=== PATIENT | female | born 1950 | race Hispanic/Latino ===

== ENCOUNTER 2018-08-04 02:04 | Emergency (ER) | payer OTHER ==
[2018-08-04] MEDS ORDERED: ONDANSETRON 4 MG/2 ML VIAL ONE ×2 (02:37→03:29)
[2018-08-04] MEDS ORDERED: FENTANYL CITR 100 MCG/2 ML ONE (02:37)
[2018-08-04] MEDS ORDERED: NA CHLORIDE 0.9% 1,000 ML ONE (02:37)
[2018-08-04] MEDS ORDERED: CEFTRIAXONE/SWI 1gm 1 GM/10 ML SYR ONE (02:37)
[2018-08-04 02:53] LABS: Absolute Lymphocytes (CBC) 2.9 K/uL (0.7-4.9); Absolute Monocytes 0.6 K/uL (0.1-1.3); Absolute Neutrophil 5.7 K/uL (1.8-8.0); Basophils % 0.2 % (0-1.3); Eosinophils % 1.6 % (0-4.4); Hematocrit 37.6 % (36.0-45.0); Lymphocytes % 30.9 % (15.3-44.8); MCH 29.7 pg (27.0-35.0); MCV 88.8 fL (80-100); MPV 9.1 fL (7.6-11.3); Monocytes % 6.4 % (3.3-12.3); RBC Red Blood Cell Count 4.23 M/uL (3.86-4.86)
[2018-08-04 02:53] LABS: Urine Appearance CLEAR; Urine Bilirubin NEGATIVE (NEG); Urine Blood NEGATIVE (NEG); Urine Color YELLOW; Urine Glucose NEGATIVE (NEG); Urine Protein TRACE (NEG); Urine Urobilinogen 0.2 mg/dL (0.2-1.0); Urine pH 5.5 (5.0-7.0)
[2018-08-04 03:02] LABS: ALT/SGPT 35 U/L (12-78); AST/SGOT 23 U/L (15-37); Albumin 3.9 g/dL (3.4-5.0); Alkaline Phosphatase 66 U/L (45-117); BUN Blood Urea Nitrogen 13 mg/dL (7-18); Bicarbonate 29 mmol/L (21-32); Bilirubin Direct 0.1 mg/dL (0-0.2); Bilirubin Total 0.5 mg/dL (0.2-1.0); Glucose Level 182 mg/dL (74-106); Lipase 107 U/L (73-393); Potassium 3.7 mmol/L (3.5-5.1); Protein, Total 7.4 g/dL (6.4-8.2); Sodium Level 142 mmol/L (136-145)
[2018-08-04 03:02] LABS: Urine Microscopic Reflex ORDER UMIC
[2018-08-04 03:24] LABS: Urine Bacteria <20 /HPF (<20); Urine Culture Reflex Order NOT NEEDED; Urine Mucus MOD /HPF (NONE SEEN); Urine RBC <5 /HPF (NONE SEEN)
--- NOTE | 2018-08-04 04:04 | ER ---
Nurse's Notes [facility] Name: Aneesh Stock Age: 67 yrs Sex: Female : 1950 Arrival Date: 08/04/2018 Time: 02:08 Bed 20 Private MD: Juan Liriano V Diagnosis: Hydronephrosis with renal and ureteral calculous obstruction Presentation: 08/04 02:17 Presenting complaint: Patient states: right flank pain right lower abd pain. Transition ak1 of care: patient was not received from another setting of care. Onset of symptoms is unknown. Risk Assessment: Do you want to hurt yourself or someone else? Patient reports no desire to harm self or others. Initial Sepsis Screen: Does the patient meet any 2 criteria? No. Patient's initial sepsis screen is negative. Does the patient have a suspected source of infection? No. Patient's initial sepsis screen is negative. Care prior to arrival: None. 02:17 Method Of Arrival: Ambulatory ak1 02:17 Acuity: NICHOLAS 3 ak1 Triage Assessment: 02:19 General: Appears in no apparent distress. Behavior is calm, cooperative. Pain: ak1 Complains of pain in right low back and right mid back. EENT: No signs and/or symptoms were reported regarding the EENT system. Neuro: No deficits noted. Cardiovascular: No deficits noted. Respiratory: No deficits noted. GI: No signs and/or symptoms were reported involving the gastrointestinal system. : Reports pain in right flank(s). Derm: No signs and/or symptoms reported regarding the dermatologic system. Musculoskeletal: Range of motion: intact in all extremities. Historical: - Allergies: 02:19 Codeine; ak1 02:19 Lamisil; ak1 02:19 Lidocaine; ak1 - Home Meds: 02:19 Glimepiride Oral [Active]; Januvia oral oral [Active]; ak1 - PMHx: 02:19 Diabetes - NIDDM; Hyperlipidemia; Hypertension; ak1 - PSHx: 02:19 ; Hysterectomy; Knee surgery; breast surgery; left wrist sx; ak1 - Immunization history:: Adult Immunizations unknown. - Social history:: Smoking status: Patient/guardian denies using tobacco. - Family history:: not pertinent. - Ebola Screening: : No symptoms or risks identified at this time. Screenin:19 Abuse screen: Denies threats or abuse. Denies injuries from another. Nutritional ak1 screening: No deficits noted. Tuberculosis screening: No symptoms or risk factors identified. Fall Risk None identified. Assessment: 02:41 Reassessment: Patient appears in no apparent distress at this time. No changes from ak1 previously documented assessment. Patient is alert, oriented x 3, equal unlabored respirations, skin warm/dry/pink. see triage assessment. Neuro: Level of Consciousness is awake, alert, obeys commands, Oriented to person, place, time, situation, Minister Assistant are equal bilaterally Moves all extremities. Gait is steady, Speech is normal, Facial symmetry appears normal. 03:18 Reassessment: Patient appears in no apparent distress at this time. No changes from ak1 previously documented assessment. Patient is alert, oriented x 3, equal unlabored respirations, skin warm/dry/pink. pt ambulated to restroom with steady gait. family at bedside, will continue to monitor. 04:19 Reassessment: pt with vomiting while ambulating to restroom, provider notified and new ak1 orders given. Vital Signs: 02:19 BP 149 / 55; Pulse 56; Resp 18; Temp 98.0(O); Pulse Ox 100% on R/A; Weight 70.31 kg ak1 (R); Height 5 ft. 0 in. (152.40 cm) (R); Pain 9/10; 03:36 BP 130 / 57; Pulse 57; Resp 18; Pulse Ox 97% on 2 lpm NC; ak1 02:19 Body Mass Index 30.27 (70.31 kg, 152.40 cm) ak1 ED Course: 02:08 Patient arrived in ED. es 02:08 Juan Liriano MD is Private Physician. es 02:13 Daren Chen MD is Attending Physician. michael 02:17 Ana María Freed, SIMON is Primary Nurse. ak1 02:17 Triage completed. ak1 02:19 Arm band placed on Patient placed in an exam room, on a stretcher, on pulse oximetry, ak1 Patient notified of wait time. 02:20 Patient has correct armband on for positive identification. Bed in low position. Call ak1 light in reach. Side rails up X 1. Adult w/ patient. Pulse ox on. NIBP on. 02:41 Inserted saline lock: 20 gauge in left antecubital area, using aseptic technique. ak1 ,using aseptic technique. placed by Roscoe Myrick RN Blood collected. 02:58 CT completed. Patient tolerated procedure well. Patient moved to CT via stretcher. eh Patient moved back from CT. 03:05 CT Stone Protocol In Process Unspecified. EDMS 04:02 Juan Liriano MD is Referral Physician. michael 04:02 Feliciano Escudero MD is Referral Physician. michael 04:43 No provider procedures requiring assistance completed. IV discontinued, intact, ak1 bleeding controlled, No redness/swelling at site. Pressure dressing applied. Administered Medications: 02:40 Drug: NS 0.9% 500 ml Route: IV; Rate: bolus; Site: left antecubital; ak1 03:28 Follow up: IV Status: Completed infusion ak1 02:40 Drug: fentaNYL (PF) 25 mcg Route: IVP; Site: left antecubital; ak1 03:18 Follow up: Response: No adverse reaction ak1 02:40 Drug: Zofran 4 mg Route: IVP; Site: left antecubital; ak1 03:18 Follow up: Response: No adverse reaction ak1 02:40 Drug: Rocephin - (cefTRIAXone) 1 grams Route: IVPB; Infused Over: 30 mins; Site: left ak1 antecubital; 04:13 Follow up: IV Status: Completed infusion ak1 03:27 Drug: NS 0.9% 1000 ml Route: IV; Rate: 125 ml/hr; Site: left antecubital; ak1 04:17 Follow up: IV Status: Completed infusion ak1 03:27 Drug: Zofran 4 mg Route: IVP; Site: left antecubital; ak1 03:32 Follow up: Response: No adverse reaction ak1 03:29 Drug: fentaNYL (PF) 25 mcg Route: IVP; Site: left antecubital; ak1 03:29 Follow up: Response: No adverse reaction ak1 04:12 Drug: TORadol 30 mg Route: IVP; Site: left antecubital; ak1 04:17 Follow up: Response: No adverse reaction ak1 04:12 Drug: NS 0.9% 500 ml Route: IV; Rate: bolus; Site: left antecubital; ak1 04:43 Follow up: IV Status: Completed infusion ak1 04:13 Drug: Phenergan 12.5 mg Route: IVP; Site: left antecubital; ak1 04:16 Follow up: Response: No adverse reaction ak1 04:32 Drug: Flomax 0.4 mg Route: PO; ak1 04:43 Follow up: Response: No adverse reaction ak1 Outcome: 04:02 Discharge ordered by . michael 04:44 Discharged to home via wheelchair, with family. ak1 04:44 Condition: good 04:44 Discharge instructions given to patient, family, Instructed on discharge instructions, follow up and referral plans. no drinking with medication, no driving heavy equipment, medication usage, Demonstrated understanding of instructions, follow-up care, medications, Prescriptions given X 4. 04:44 Patient left the ED. ak1 Addendum: 08/05/2018 11:31 Addendum: Radiology Result: Dr. Reese reviewed CT, advises to have pt follow up with i w PCP to evaluate the need for repeat CT with contrast, pt was notified by Yuan Gaona NP. 08/07/2018 07:48 Addendum: Culture Results: Positive urine culture. No further action required. Bacteria h b sensitive to prescribed antibiotic. Signatures: Dispatcher [employer] Daren Prado MD MD cha Salyer, Tyler Gannon Irene, Ana María Hernandez RN, RN RN ak1 Maria Elena Zamora RN RN
--- NOTE | 2018-08-04 04:04 | EDPHYS ---
Physician Documentation [facility] Name: Aneesh Stock Age: 67 yrs Sex: Female : 1950 Arrival Date: 08/04/2018 Time: 02:08 Bed 20 Private MD: Juan Liriano V ED Physician Daren Chen HPI: 08/04 02:16 This 67 yrs old Female presents to ER via Unassigned with complaints of Back michael Pain, Flank Pain. 02:16 The patient presents with pain that is acute, with no known mechanism of injury. The michael symptoms are located in the right mid back and right low back. Onset: The symptoms/episode began/occurred just prior to arrival, this morning. Location: right mid back and right low back. Associated signs and symptoms: The patient has no apparent associated signs or symptoms. The problem was sustained from unknown cause. Severity of symptoms: At their worst the symptoms were moderate. The patient has not experienced similar symptoms in the past. Historical: - Allergies: 02:19 Codeine; ak1 02:19 Lamisil; ak1 02:19 Lidocaine; ak1 - Home Meds: 02:19 Glimepiride Oral [Active]; Januvia oral oral [Active]; ak1 - PMHx: 02:19 Diabetes - NIDDM; Hyperlipidemia; Hypertension; ak1 - PSHx: 02:19 ; Hysterectomy; Knee surgery; breast surgery; left wrist sx; ak1 - Immunization history:: Adult Immunizations unknown. - Social history:: Smoking status: Patient/guardian denies using tobacco. - Family history:: not pertinent. - Ebola Screening: : No symptoms or risks identified at this time. ROS: 02:16 Constitutional: Negative for fever, chills, and weight loss, Eyes: Negative for injury, michael pain, redness, and discharge, ENT: Negative for injury, pain, and discharge, Neck: Negative for injury, pain, and swelling, Cardiovascular: Negative for chest pain, palpitations, and edema, Respiratory: Negative for shortness of breath, cough, wheezing, and pleuritic chest pain, Abdomen/GI: Negative for abdominal pain, nausea, vomiting, diarrhea, and constipation, : Negative for injury, bleeding, discharge, and swelling, MS/Extremity: Negative for injury and deformity, Skin: Negative for injury, rash, and discoloration, Neuro: Negative for headache, weakness, numbness, tingling, and seizure, Psych: Negative for depression, anxiety, suicide ideation, homicidal ideation, and hallucinations, Allergy/Immunology: Negative for hives, rash, and allergies, Endocrine: Negative for neck swelling, polydipsia, polyuria, polyphagia, and marked weight changes, Hematologic/Lymphatic: Negative for swollen nodes, abnormal bleeding, and unusual bruising. 02:16 Back: Positive for decreased range of motion, pain at rest, flank pain, on the right. Exam: 02:16 Constitutional: This is a well developed, well nourished patient who is awake, alert, michael and in no acute distress. Head/Face: Normocephalic, atraumatic. Eyes: Pupils equal round and reactive to light, extra-ocular motions intact. Lids and lashes normal. Conjunctiva and sclera are non-icteric and not injected. Cornea within normal limits. Periorbital areas with no swelling, redness, or edema. ENT: Nares patent. No nasal discharge, no septal abnormalities noted. Tympanic membranes are normal and external auditory canals are clear. Oropharynx with no redness, swelling, or masses, exudates, or evidence of obstruction, uvula midline. Mucous membranes moist. Neck: Trachea midline, no thyromegaly or masses palpated, and no cervical lymphadenopathy. Supple, full range of motion without nuchal rigidity, or vertebral point tenderness. No Meningismus. Chest/axilla: Normal chest wall appearance and motion. Nontender with no deformity. No lesions are appreciated. Cardiovascular: Regular rate and rhythm with a normal S1 and S2. No gallops, murmurs, or rubs. Normal PMI, no JVD. No pulse deficits. Respiratory: Lungs have equal breath sounds bilaterally, clear to auscultation and percussion. No rales, rhonchi or wheezes noted. No increased work of breathing, no retractions or nasal flaring. Abdomen/GI: Soft, non-tender, with normal bowel sounds. No distension or tympany. No guarding or rebound. No evidence of tenderness throughout. Female : Normal external genitalia. Skin: Warm, dry with normal turgor. Normal color with no rashes, no lesions, and no evidence of cellulitis. MS/ Extremity: Pulses equal, no cyanosis. Neurovascular intact. Full, normal range of motion. Neuro: Awake and alert, GCS 15, oriented to person, place, time, and situation. Cranial nerves II-XII grossly intact. Motor strength 5/5 in all extremities. Sensory grossly intact. Cerebellar exam normal. Normal gait. Psych: Awake, alert, with orientation to person, place and time. Behavior, mood, and affect are within normal limits. 02:16 Back: pain, that is mild, that is moderate, ROM is normal, normal spinal alignment noted, CVA tenderness, is absent, vertebral tenderness, is not appreciated, muscle spasm, is not present, no rash. Vital Signs: 02:19 BP 149 / 55; Pulse 56; Resp 18; Temp 98.0(O); Pulse Ox 100% on R/A; Weight 70.31 kg ak1 (R); Height 5 ft. 0 in. (152.40 cm) (R); Pain 9/10; 03:36 BP 130 / 57; Pulse 57; Resp 18; Pulse Ox 97% on 2 lpm NC; ak1 02:19 Body Mass Index 30.27 (70.31 kg, 152.40 cm) ak1 MDM: 02:48 Patient medically screened. [facility] 04:03 Data reviewed: vital signs, nurses notes, lab test result(s), radiologic studies, CT michael scan. 08/04 02:15 Order name: Basic Metabolic Panel; Complete Time: 03:21 [facility] 08/04 02:15 Order name: CBC with Diff; Complete Time: 03:21 [facility] 08/04 02:15 Order name: Creatinine for Radiology; Complete Time: 03:21 [facility] 08/04 02:15 Order name: Hepatic Function; Complete Time: 03:21 [facility] 08/04 02:15 Order name: Lipase; Complete Time: 03:21 [facility] 08/04 02:15 Order name: Urine Culture [facility] 08/04 02:16 Order name: CT Stone Protocol [facility] 08/04 02:41 Order name: Urinalysis; Complete Time: 04:01 [facility] 08/04 03:03 Order name: Urine Microscopic Only; Complete Time: 04:01 [facility] 08/04 02:15 Order name: IV Saline Lock; Complete Time: 02:31 [facility] 08/04 02:15 Order name: Labs collected and sent; Complete Time: 02:31 [facility] 08/04 02:15 Order name: Urine Dipstick-Ancillary (obtain specimen); Complete Time: 02:40 [facility] Administered Medications: 02:40 Drug: NS 0.9% 500 ml Route: IV; Rate: bolus; Site: left antecubital; ak1 03:28 Follow up: IV Status: Completed infusion ak1 02:40 Drug: fentaNYL (PF) 25 mcg Route: IVP; Site: left antecubital; ak1 03:18 Follow up: Response: No adverse reaction ak1 02:40 Drug: Zofran 4 mg Route: IVP; Site: left antecubital; ak1 03:18 Follow up: Response: No adverse reaction ak1 02:40 Drug: Rocephin - (cefTRIAXone) 1 grams Route: IVPB; Infused Over: 30 mins; Site: left ak1 antecubital; 04:13 Follow up: IV Status: Completed infusion ak1 03:27 Drug: NS 0.9% 1000 ml Route: IV; Rate: 125 ml/hr; Site: left antecubital; ak1 04:17 Follow up: IV Status: Completed infusion ak1 03:27 Drug: Zofran 4 mg Route: IVP; Site: left antecubital; ak1 03:32 Follow up: Response: No adverse reaction ak1 03:29 Drug: fentaNYL (PF) 25 mcg Route: IVP; Site: left antecubital; ak1 03:29 Follow up: Response: No adverse reaction ak1 04:12 Drug: TORadol 30 mg Route: IVP; Site: left antecubital; ak1 04:17 Follow up: Response: No adverse reaction ak1 04:12 Drug: NS 0.9% 500 ml Route: IV; Rate: bolus; Site: left antecubital; ak1 04:43 Follow up: IV Status: Completed infusion ak1 04:13 Drug: Phenergan 12.5 mg Route: IVP; Site: left antecubital; ak1 04:16 Follow up: Response: No adverse reaction ak1 04:32 Drug: Flomax 0.4 mg Route: PO; ak1 04:43 Follow up: Response: No adverse reaction ak1 Disposition: 08/04/18 04:02 Discharged to Home. Impression: Hydronephrosis with renal and ureteral calculous obstruction. - Condition is Stable. - Discharge Instructions: Kidney Stones, Kidney Stones, [id number], Hydronephrosis, Dietary Guidelines to Help Prevent Kidney Stones. - Prescriptions for Augmentin 500- 125 mg Oral Tablet - take 1 tablet by ORAL route every 8 hours for 10 days; 21 tablet. Zofran 4 mg Oral Tablet - take 1 tablet by ORAL route every 12 hours As needed; 20 tablet. Flomax 0.4 mg Oral Capsule, Sust. Release 24 hr - take 1 capsule by ORAL route once daily 1/2 hour following the same meal each day; 30 capsule. Tramadol 50 mg Oral Tablet - take 1 tablet by ORAL route every 8 hours as needed; 26 tablet. - Medication Reconciliation Form, Thank You Letter, Antibiotic Education, Prescription Opioid Use form. - Follow up: Juan Liriano; When: 2 - 3 days; Reason: Recheck today's complaints, Continuance of care, Re-evaluation by your physician. Follow up: Feliciano Escudero; When: 2 - 3 days; Reason: Recheck today's complaints, Continuance of care, Re-evaluation by your physician. - Problem is new. - Symptoms have improved. Signatures: Dispatcher [employer] Daren Prado MD MD cha Krenek, Amber, RN RN ak1 Corrections: (The following items were deleted from the chart) 04:44 04:02 08/04/2018 04:02 Discharged to Home. Impression: Hydronephrosis with renal and ak1 ureteral calculous obstruction. Condition is Stable. Discharge Instructions: Kidney Stones, Kidney Stones, [id number], Hydronephrosis, Dietary Guidelines to Help Prevent Kidney Stones. Prescriptions for Augmentin 500-125 mg Oral Tablet - take 1 tablet by ORAL route every 8 hours for 10 days; 21 tablet, Zofran 4 mg Oral Tablet - take 1 tablet by ORAL route every 12 hours As needed; 20 tablet, Flomax 0.4 mg Oral Capsule, Sust. Release 24 hr - take 1 capsule by ORAL route once daily 1/2 hour following the same meal each day; 30 capsule, Tramadol 50 mg Oral Tablet - take 1 tablet by ORAL route every 8 hours as needed; 26 tablet. and Forms are Medication Reconciliation Form, Thank You Letter, Antibiotic Education, Prescription Opioid Use. Follow up: Juan Liriano; When: 2 - 3 days; Reason: Recheck today's complaints, Continuance of care, Re-evaluation by your physician. Follow up: Feliciano Escudero; When: 2 - 3 days; Reason: Recheck today's complaints, Continuance of care, Re-evaluation by your physician. Problem is new. Symptoms have improved. michael
[2018-08-04] MEDS ORDERED: TAMSULOSIN 0.4 MG SR CAP ONE (04:13)
[2018-08-04] MEDS ORDERED: KETOROLAC 30 MG/ML INJ ONE (04:13)
[2018-08-04] MEDS ORDERED: PROMETHAZINE 25 MG/ML VIAL ONE (04:13)
--- NOTE | 2018-08-04 08:15 | RAD REPORT ---
EXAM DESCRIPTION: CT - Stone Protocol - 08/04/2018 4:24 am CLINICAL HISTORY: Abdominal pain, flank pain, prior hysterectomy A preliminary report was provided at the time of the study and reviewed prior to final report. COMPARISON: None. TECHNIQUE: Axial 5 mm thick images were obtained without oral or IV contrast. The [id number] span s the entirety of the system including uppermost abdomen and lung bases. All CT scans are performed using dose optimization technique as appropriate and may include automated exposure control or mA/KV adjustment according to patient size. FINDINGS: Moderate right-sided hydronephrosis is present secondary to a 4 mm right UVJ calculus. No left-sided hydronephrosis. Punctate nonobstructing caliceal calculi are present. Multiple bilateral v ariably sized round low-density masses are seen in the renal parenchyma. These are probably cysts but are not fully characterized. An exophytic 3 centimeter mass posterior mid left kidney has a somewhat flattened or oblong shape probably due to extrinsic compression. None of the masses are fully charac terized. Urinary bladder is contracted. No calculus within the lumen. Uterus is absent. Ovaries are a bsent or atrophic. Patient has numerous pelvic floor phleboliths. Calcifications are near the vaginal cuff as well. Liver is prominent in size. There are numerous variably sized low-density masses in the liver predomi nantly left lobe. These range from a few mm up to 2.6 cm in size. The cysts in the liver parenchyma a re not fully characterized on noncontrast imaging. Spleen and pancreas show no suspicious findings. No gallbladder or biliary tree abnormality identifie d. Gallstones can be occult on CT imaging. No adrenal abnormality. No suspicious bowel findings. No mass or bulky lymphadenopathy. A small 18 millimeter umbilical hernia is present. No bowel involve ment. No free air, free fluid or inflammatory stranding. No omental thickening. No significant bony abnormality. Age appropriate degenerative changes are present. Degenerative aburto es are most prominent in the lower lumbar facet joints. IMPRESSION: Moderate right-sided hydronephrosis secondary to a 4 mm UVJ calculus. Bilateral nonobstructing caliceal calculi present. Isodense masses and pyelonephritis are not excluded on stone protocol technique. Multiple bilateral renal and hepatic round low-density masses. These may all be simple cysts but are not assessed fully on this examination. There are characteristics in a few of these liver and renal l esions warranting follow-up with contrast enhanced CT imaging.
== END 2018-08-04 04:44 | disposition home or self-care (01) ==
LOC: ER 02:04
DX: N13.2 Hydronephrosis with renal and ureteral calculous obstruction (principal); I10 Essential (primary) hypertension; E78.5 Hyperlipidemia, unspecified; E11.9 Type 2 diabetes mellitus without complications; Z79.4 Long term (current) use of insulin; Z88.4 Allergy status to anesthetic agent; Z88.5 Allergy status to narcotic agent; Z88.8 Allergy status to other drugs, medicaments and biological substances
CPT/HCPCS: 36415; 74176; 76377; 80048; 80076; 83690; 85025; 87077 ×2; 87086; 87088; 87186 ×2; 96365; 96366; 96375; 99284; J0696; J2405 ×2; J2550; J3010; J7030; 81003; 81015

== ENCOUNTER 2019-04-29 09:32 | Emergency (ER) | payer OTHER ==
--- OUTSIDE RECORDS SUMMARY | 2019-04-29 09:35 | XMS REPORT | Clinical Summary ---
:1950 Author Organization [facility] Address [address] [place] [address] Care Team Providers Name Role Phone Juan Liriano MD Primary Care Provider Allergies Active Allergy Reactions Severity Noted Date Comments Adhesive Tape-Silicones 10/25/2017 Skin sensitivity Codeine 10/25/2017 Passes out Terbinafine Hcl Rash Low 10/25/2017 Lidocaine Anaphylaxis High 10/25/2017 Medications Medication Sig Dispensed Refills Start Date End Date Status SIMVASTATIN (ZOCOR Take 40 mg by 0 Active ORAL) mouth every evening. aspirin (ECOTRIN) 81 MG Take 81 mg by 0 Active enteric coated tablet mouth daily. GLIMEPIRIDE ORAL Take 4 mg by mouth 0 Active daily. omeprazole (PriLOSEC) Take 20 mg by 0 Active 20 MG capsule mouth daily. sitaGLIPtin (JANUVIA) Take 100 mg by 0 Active 50 MG tablet mouth daily. ACETAMINOPHEN (TYLENOL Take by mouth. 0 Active ORAL) fluticasone-salmeterol Inhale 1 puff 2 0 Active (ADVAIR) 100-50 (two) times a day. mcg/dose DISKUS traMADol (ULTRAM) 50 mg Take 50 mg by 0 Active tablet mouth every 6 (six) hours as needed for moderate pain. NON FORMULARY daily. 0 Active Mitochondrial Booster hydroxychloroquine Take by mouth 2 0 Active (PLAQUENIL) 200 mg (two) times a day. tablet CALCIUM ORAL Take by mouth 0 Active daily. NON FORMULARY Allergy shot every 0 Active week losartan (COZAAR) 50 MG Take 50 mg by 0 Active tablet mouth daily. Active Problems Problem Noted Date Closed fracture of left distal radius and ulna 10/28/2017 Closed fracture of left distal radius 10/25/2017 Encounters Date Type Specialty Care Team Description 03/30/2019 Hospital Encounter Radiology Angel, An Kae, Acquired cyst of MD kidney 03/16/2019 Transcribe Orders Access Angel, An Kae, Acquired cyst of MD kidney (Primary Dx) 11/02/2018 Office Visit Orthopedic Surgery Linette Viera Closed fracture of MD Edel distal end of left radius with routine healing, unspecified fracture morphology, subsequent encounter (Primary Dx) 08/21/2018 Hospital Encounter Radiology Angel, An Kae, Acquired cyst of MD kidney 08/16/2018 Transcribe Orders Access Angel, An Kea, Acquired cyst of MD kidney (Primary Dx) after 04/28/2018 Family History Medical History Relation Name Comments Diabetes Maternal Grandmother Lachelle Herbert Cancer Mother Magdalena Diego Relation Name Status Comments Maternal Grandmother Lachelle Herbert Mother Magdalena Diego Social History Tobacco Use Types Packs/Day Years Used Date Never Smoker Smokeless Tobacco: Never Used Alcohol Use Drinks/Week oz/Week Comments No Sex Assigned at Date Recorded Not on file Job Start Date Occupation Industry Not on file Not on file Not on file Travel History Travel Start Travel End No recent travel history available. Last Filed Vital Signs Not on file Plan of Treatment Health Maintenance Due Date Last Done Comments BREAST CANCER SCREENING 2000 COLONOSCOPY SCREENING 2000 SHINGLES VACCINES (#1) 2000 65+ PNEUMOCOCCAL VACCINE (1 of 2 - PCV13) 12/31/2015 INFLUENZA VACCINE 05/24/2019 08/31/2018 Implants Implanted Type Area Ostomy Care Nurse Device Shelf Model / Identifier Expiration Serial / Date Lot 2.4 X 16mm Kathy Screw, Ti - [id number] [id number] IMPLANT Left: [employer] AR [id number] 16 / Implanted: Qty: 1 on 10/28/2017 by Linette Viera MD DEVICES Wrist [employer]THOPED[employer] / 2.4 X 18mm Kathy Screw, Ti - [id number] [id number] IMPLANT Left: [employer] AR [id number] 18 / Implanted: Qty: 1 on 10/28/2017 by Linette Viera MD [employer] Wrist [employer]TH[employer] / 2.4 X 18mm Kathy Screw, Ti - [id number] [id number] IMPLANT Left: [employer] AR [id number] 18 / Implanted: Qty: 1 on 10/28/2017 by Linette Viera MD [employer] Wrist [employer] / 2.4 X 18mm Kathy Screw, Ti - [id number] [id number] IMPLANT Left: [employer] AR [id number] 18 / Implanted: Qty: 1 on 10/28/2017 by Linette Viera MD [employer] Wrist [employer] / Volar Distal Rad Plt Ti Narrow Lt 3h - [id number] [id number] IMPLANT Left: [employer] AR [id number] 03 / Implanted: Qty: 1 on 10/28/2017 by Linette Viera MD [employer]rist [employer] / Lo-Pro Scrw,Ti,3.5mmx 12mm - [id number] [id number] IMPLANT Left: [employer] AR 8935 12 / Implanted: Qty: 1 on 10/28/2017 by Linette Viera MD [employer] Wrist [employer] / Lo-Pro Lock Scrw,Ti,3.5mmx 12mm - [id number] [id number] IMPLANT Left: [employer] AR [id number] 12 / Implanted: Qty: 1 on 10/28/2017 by Linette Viera MD [employer] Wrist [employer] / Lo-Pro Lock Scrw,Ti,3.5mmx 12mm - [id number] IPM IMPLANT Left: [employer] AR [id number] 12 / Implanted: Qty: 1 on 10/28/2017 by Linette Viera MD [employer] / Procedures Procedure Name Priority Date/Time Associated Diagnosis Comments CT ABDOMEN W WO Routine 03/30/2019 9:56 AM Acquired cyst of Results for this CONTRAST CDT kidney procedure are in the results section. ESTIMATED GFR Routine 03/30/2019 9:16 AM Results for this CDT procedure are in the results section. CREATININE, WHOLE Routine 03/30/2019 9:16 AM Results for this BLOOD CDT procedure are in the results section. XR WRIST 3+ VW LEFT Routine 11/02/2018 12:59 PM Closed fracture of Results for this [employer] distal end of left procedure are in radius with routine the results healing, unspecified section. fracture morphology, subsequent encounter US RENAL Routine 08/21/2018 9:37 AM Acquired cyst of Results for this CDT kidney procedure are in the results section. after 04/28/[address] Abdomen W Wo Contrast (03/30/2019 9:56 AM CDT) Specimen Narrative Performed At EXAMINATION:CT ABDOMEN W WO CONTRAST HM [facility] CLINICAL HISTORY:N28.1 Cyst of kidneyacquired, n28.1 TECHNIQUE:CT of the abdomen was obtained following the uneventful administration of intravenous contrast. Noncontrast, medullary, and delayed phase images were obtained along with coronal and sagittal reformats. DOSE REDUCTION: CT imaging was performed with iterative reconstruction technique and/or automated exposure control to reduce radiation dose. COMPARISON:None. FINDINGS: 1.Multiple punctate, nonobstructing renal stones are seen within both collecting systems. There is a single calcification seen within a midpole calyx of the right kidney measuring up to 0.2 cm. Multiple calcifications are seen within the superior pole calyces of the left kidney measuring up to 0.2 cm. There is no evidence of hydronephrosis. No perinephric stranding. 2.Multiple simple cysts are seen within both kidneys. No internal septations or mural nodules are noted. These all appear Bosniak 1). The largest on the right measures 3.0 cm. The largest on the left measures 3.8 cm. 3.Both kidneys demonstrate excretion of contrast on delayed images. No filling defects are seen within the collecting systems. Both kidneys measure up to 8.4 cm in greatest craniocaudal dimension. 4.A single right and single left renal vein is noted. A single right and single left renal artery is also seen. No ostial stenosis. 5.The lung bases are clear. Bibasilar atelectasis. The cardiac size is normal. No pericardial effusion. 6.Multiple cysts are seen scattered throughout the liver which all appear simple. There is a peripheral/nodular enhancement component to a cyst within the inferior right lobe (image 51, series 4), measuring 1.1 cm, and may represent a hemangioma. No intrahepatic biliary duct dilatation. The main portal vein, superior mesenteric vein, and splenic veins are patent. 7.The gallbladder is contracted. No gallstones are seen. Common bile duct is unremarkable. 8.The pancreas, spleen, and adrenals are unremarkable. 9.The visualized loops of large and small bowel are unremarkable. 10.No retroperitoneal lymphadenopathy. 11.The abdominal aorta is normal in course and caliber with a minimal amount of calcified atherosclerotic disease. 12.The bones of the abdomen are unremarkable. IMPRESSION: 1.Multiple simple cysts are seen within both kidneys and the liver. No solid masses. 2.Bilateral nonobstructing nephrolithiasis. [id number] Procedure Note Hm Interface, Radiology Results Incoming - 03/30/2019 10:51 AM CDT EXAMINATION: CT ABDOMEN W WO CONTRAST CLINICAL HISTORY: N28.1 Cyst of kidney acquired, n28.1 TECHNIQUE: CT of the abdomen was obtained following the uneventful administration of intravenous contrast. Noncontrast, medullary, and delayed phase images were obtained along with coronal and sagittal reformats. DOSE REDUCTION: CT imaging was performed with iterative reconstruction technique and/or automated exposure control to reduce radiation dose. COMPARISON: None. FINDINGS: 1. Multiple punctate, nonobstructing renal stones are seen within both collecting systems. There is a single calcification seen within a midpole calyx of the right kidney measuring up to 0.2 cm. Multiple calcifications are seen within the superior pole calyces of the left kidney measuring up to 0.2 cm. There is no evidence of hydronephrosis. No perinephric stranding. 2. Multiple simple cysts are seen within both kidneys. No internal septations or mural nodules are noted. These all appear Bosniak 1). The largest on the right measures 3.0 cm. The largest on the left measures 3.8 cm. 3. Both kidneys demonstrate excretion of contrast on delayed images. No filling defects are seen within the collecting systems. Both kidneys measure up to 8.4 cm in greatest craniocaudal dimension. 4. A single right and single left renal vein is noted. A single right and single left renal artery is also seen. No ostial stenosis. 5. The lung bases are clear. Bibasilar atelectasis. The cardiac size is normal. No pericardial effusion. 6. Multiple cysts are seen scattered throughout the liver which all appear simple. There is a peripheral/nodular enhancement component to a cyst within the inferior right lobe (image 51, series 4), measuring 1.1 cm, and may represent a hemangioma. No intrahepatic biliary duct dilatation. The main portal vein, superior mesenteric vein, and splenic veins are patent. 7. The gallbladder is contracted. No gallstones are seen. Common bile duct is unremarkable. 8. The pancreas, spleen, and adrenals are unremarkable. 9. The visualized loops of large and small bowel are unremarkable. 10. No retroperitoneal lymphadenopathy. 11. The abdominal aorta is normal in course and caliber with a minimal amount of calcified atherosclerotic disease. 12. The bones of the abdomen are unremarkable. IMPRESSION: 1. Multiple simple cysts are seen within both kidneys and the liver. No solid masses. 2. Bilateral nonobstructing nephrolithiasis. [facility]-[id number] Performing Organization Address City/[facility]/Zipcode Phone Number [facility] [address] [place] [address] Estimated GFR (03/30/2019 9:16 AM CDT) Estimated GFR >=90 mL/min/1.73 [facility] Comment: m2 [place] CatergoryUnitsInterpretation [facility] G1 >=90 Normal or high G2 60-89Mildly decreased [id number] to moderately decreased [id number] to severely decreased G4 15-29Severely decreased G5 <15Kidney failure The eGFR was calculated using the Chronic Kidney Disease Epidemiology Collaboration (CKD-EPI) equation. Interpretation is based on recommendations of the National Kidney Foundation-Kidney Disease Outcomes Quality Initiative (NKF-KDOQI) published in 2014. Specimen Plasma specimen Performing Organization Address [facility] Phone Number [facility] DEPARTMENT OF PATHOLOGY [id number] [place] [address] Creatinine, whole blood (03/30/2019 9:16 AM CDT) Creatinine, whole 0.47 (L) 0.50 - 0.90 [facility] blood mg/dL [facility] Specimen Plasma specimen Performing Organization Address [facility] Phone Number [facility] DEPARTMENT OF PATHOLOGY [id number] [place] [address] AND [facility] [id number] [place] [address] XR Wrist 3+ Vw Left (11/02/2018 12:59 PM GUN [employer]OCK [employer]ER) Specimen Narrative Performed At 3 view of right wrist shows well healed distal radius fracture, unchanged [facility] alignment of hardware. Performing Organization Address City/[facility]/Zipcode Phone Number [facility] [address] [place] [address] US Renal (08/21/2018 9:37 AM CDT) Specimen Narrative Performed At EXAMINATION:US RENAL [facility] CLINICAL HISTORY:N28.1 Cyst of kidney COMPARISON: None available at this time. IMPRESSION: 1.Bilateral renal cysts, some thinly septated. 2.No suspicious renal mass. 3.Fatty infiltration of the liver. FINDINGS: Kidneys are normal in position, echogenicity, and size. Right kidney measures 12.7 x 6.5 x 5.2 cm and the left kidney 11.6 x 6.6 x 5.3 cm. Two cysts in the interpolar right kidney measure 3.1 x 2.9 x 2.7 cm and 2.0 x 1.9 x 1.6 cm respectively, and the smaller 2.0 cm cyst is thinly septated.. Several cysts are observed throughout the left kidney, and the two largest measure 3.2 x 3.1 x 3.0 cm and 3.2 x 3.0 x 2.7 cm. One cyst is thinly septated. No suspicious renal mass, calculus, or hydronephrosis identified bilaterally. Urinary bladder is collapsed precluding evaluation. Imaged right liver is echogenic consistent with fatty infiltration. Thank you for allowing us to participate in the care of your patient. [facility]-[id number] Procedure Note Hm Interface, Radiology Results Incoming - 08/21/2018 9:48 AM CDT EXAMINATION: US RENAL CLINICAL HISTORY: N28.1 Cyst of kidney COMPARISON: None available at this time. IMPRESSION: 1. Bilateral renal cysts, some thinly septated. 2. No suspicious renal mass. 3. Fatty infiltration of the liver. FINDINGS: Kidneys are normal in position, echogenicity, and size. Right kidney measures 12.7 x 6.5 x 5.2 cm and the left kidney 11.6 x 6.6 x 5.3 cm. Two cysts in the interpolar right kidney measure 3.1 x 2.9 x 2.7 cm and 2.0 x 1.9 x 1.6 cm respectively, and the smaller 2.0 cm cyst is thinly septated.. Several cysts are observed throughout the left kidney, and the two largest measure 3.2 x 3.1 x 3.0 cm and 3.2 x 3.0 x 2.7 cm. One cyst is thinly septated. No suspicious renal mass, calculus, or hydronephrosis identified bilaterally. Urinary bladder is collapsed precluding evaluation. Imaged right liver is echogenic consistent with fatty infiltration. Thank you for allowing us to participate in the care of your patient. [facility]-[id number] Performing Organization Address City/State/Zipcode Phone Number [facility] [address] [place] [address] after 04/28/2018 Insurance Payer Benefit Plan / Subscriber ID Effective Dates Phone Address Type Group MEDICARE MEDICARE PART A xxxxxxxxxxx 2015-Present [place], [place] Medicare AND B AETNA AETNA PPO OPEN xxxxxxxxxx 2002-Present PPO CHOICE Advance Directives Patient has advance care planning documents on file. For more information, please contact:Malcolm Delgadillo[address] [place] [address]
[2019-04-29] MEDS ORDERED: TRAMADOL HCL 50 MG TAB ONE (10:31)
--- NOTE | 2019-04-29 10:51 | RAD REPORT ---
EXAM DESCRIPTION: RAD - Knee Right 3 View - 04/29/2019 10:42 am CLINICAL HISTORY: Slip and fall, knee pain COMPARISON: None. FINDINGS: No fracture, dislocation or periosteal reaction.No measurable joint effusion. Medial esa rtment degenerative spurring present. There is spurring along the patella articular margins. Slight n arrowing of the medial compartment noted. No foreign body or other soft tissue abnormality. IMPRESSION: Degenerative changes to the right knee as detailed. No acute finding. Clinical concerns for internal derangement or occult bony injury could be further assessed with MR im aging.
--- NOTE | 2019-04-29 10:54 | RAD REPORT ---
EXAM DESCRIPTION: RAD - Foot Right 3 View - 04/29/2019 10:43 am CLINICAL HISTORY: Slip and fall, right foot pain COMPARISON: None. FINDINGS: No fracture deformity confirmed. Slight irregular cortical margins third proximal phalanx is not identified on any other view. Probability of fracture is low. IP joint degenerative changes ar e present throughout the foot. No significant MTP degenerative change. Patient has a moderate-sized p lantar spur. No air or foreign body in the soft tissues. IMPRESSION: Degenerative changes are present including moderate-sized plantar spur. No fracture or acute bone finding confirmed. Re-evaluation in 5-7 days could be performed if there ar e persistent clinical findings concerning for fracture.
--- NOTE | 2019-04-29 10:56 | RAD REPORT ---
EXAM DESCRIPTION: RAD - Ankle Right 3 View - 04/29/2019 10:42 am CLINICAL HISTORY: Fall, twisting injury, foot and ankle pain COMPARISON: None. FINDINGS: Oblique fracture is present through the distal fibula with no significant distraction or a ngulation deformity. A very small punctate bone density is present at the tip of the medial malleolus . There is some faint lucency. A nondisplaced medial malleolus fracture is certainly possible. This w ould not likely alter medical management. No posterior malleolus fracture. The patient has a moderate size plantar spur. No joint effusion seen. No joint space narrowing. Lateral soft tissue swelling is present. IMPRESSION: Oblique fracture through the distal right fibula. No significant distraction or angulati on deformity. Suspected nondisplaced medial malleolus fracture. Any fracture at this site would be treated in the c ourse of the fibula fracture treatment. Significant lateral soft tissue swelling.
--- NOTE | 2019-04-29 11:16 | EDPHYS ---
Physician Documentation [facility] Name: Aneesh Stock Age: 68 yrs Sex: Female : 1950 Arrival Date: 04/29/2019 Time: 09:36 Bed 26 Private MD: Juan Liriano V ED Physician Prasad Elias HPI: 04/29 10:09 This 68 yrs old Female presents to ER via Wheelchair with complaints of Fall ma2 Injury. 10:09 Details of fall: The patient fell from a supine position. Onset: The symptoms/episode ma2 began/occurred suddenly, 1 hour(s) ago. Associated injuries: The patient sustained right leg. Severity of symptoms: At their worst the symptoms were mild, in the emergency department the symptoms have resolved. The patient has not experienced similar symptoms in the past. declined pain rx in er . Historical: - Allergies: 10:00 Codeine; iw 10:00 Lamisil; iw 10:00 Lidocaine; iw - Home Meds: 10:00 simvastatin 40 mg Oral tab 1 tab once daily [Active]; glimepiride 4 mg Oral tab 1 tab iw once daily [Active]; Januvia 50 mg oral tab 2 tabs once daily [Active]; fluticasone inhalation inhalation [Active]; losartan 50 mg oral tab 1 tab once daily [Active]; Calcium Carbonate Oral daily [Active]; - PMHx: 10:00 Diabetes - NIDDM; Hyperlipidemia; Hypertension; iw - PSHx: 10:00 ; Hysterectomy; Knee surgery; breast surgery; left wrist sx; iw - Immunization history:: Adult Immunizations up to date. - Social history:: Smoking status: Patient/guardian denies using tobacco, Patient/guardian denies using alcohol, street drugs, The patient lives with family. - Ebola Screening: : Patient negative for fever greater than or equal to 101.5 degrees Fahrenheit, and additional compatible Ebola Virus Disease symptoms Patient denies exposure to infectious person Patient denies travel to an Ebola-affected area in the 21 days before illness onset No symptoms or risks identified at this time. - Family history:: not pertinent. - Hospitalizations: : No recent hospitalization is reported. ROS: 10:09 Constitutional: Negative for fever, chills, and weight loss. ma2 10:09 All other systems are negative. Exam: 10:09 Constitutional: This is a well developed, well nourished patient who is awake, alert, ma2 and in no acute distress. Head/Face: Normocephalic, atraumatic. Eyes: Pupils equal round and reactive to light, extra-ocular motions intact. Lids and lashes normal. Conjunctiva and sclera are non-icteric and not injected. Cornea within normal limits. Periorbital areas with no swelling, redness, or edema. ENT: Nares patent. No nasal discharge, no septal abnormalities noted. Tympanic membranes are normal and external auditory canals are clear. Oropharynx with no redness, swelling, or masses, exudates, or evidence of obstruction, uvula midline. Mucous membranes moist. Neck: Trachea midline, no thyromegaly or masses palpated, and no cervical lymphadenopathy. Supple, full range of motion without nuchal rigidity, or vertebral point tenderness. No Meningismus. Chest/axilla: Normal chest wall appearance and motion. Nontender with no deformity. No lesions are appreciated. Cardiovascular: Regular rate and rhythm with a normal S1 and S2. No gallops, murmurs, or rubs. Normal PMI, no JVD. No pulse deficits. Respiratory: Lungs have equal breath sounds bilaterally, clear to auscultation and percussion. No rales, rhonchi or wheezes noted. No increased work of breathing, no retractions or nasal flaring. Abdomen/GI: Soft, non-tender, with normal bowel sounds. No distension or tympany. No guarding or rebound. No evidence of tenderness throughout. Back: No spinal tenderness. No costovertebral tenderness. Full range of motion. Skin: Warm, dry with normal turgor. Normal color with no rashes, no lesions, and no evidence of cellulitis. Neuro: Awake and alert, GCS 15, oriented to person, place, time, and situation. Cranial nerves II-XII grossly intact. Motor strength 5/5 in all extremities. Sensory grossly intact. Cerebellar exam normal. Normal gait. Psych: Awake, alert, with orientation to person, place and time. Behavior, mood, and affect are within normal limits. 10:09 Musculoskeletal/extremity: Extremities: grossly normal except: right knee and ankle ttp , ROM: Compartment Syndrome exam of affected extremity: is normal. Vital Signs: 10:02 BP 128 / 70; Pulse 60; Resp 16; Temp 98.2; Pulse Ox 100% on R/A; Weight 64.41 kg; iw Height 5 ft. 0 in. (152.40 cm); Pain 10/10; 11:45 BP 159 / 69; Pulse 59; Resp 18; Pulse Ox 96% on R/A; hj 10:02 Body Mass Index 27.73 (64.41 kg, 152.40 cm) iw MDM: 09:49 Patient medically screened. ak2 10:09 Differential diagnosis: abrasion, contusion, fracture, sprain, strain. ak2 11:08 Data reviewed: vital signs, nurses notes. Counseling: I had a detailed discussion with [facility] the patient and/or guardian regarding: the historical points, exam findings, and any diagnostic results supporting the discharge/admit diagnosis, the presence of at least one elevated blood pressure reading (>120/80) during this emergency department visit, the need for outpatient follow up. Response to treatment: the patient's symptoms have markedly improved after treatment. 04/29 09:55 Order name: Ankle Right 3 View XRAY; Complete Time: 11:01 ma2 04/29 09:55 Order name: Knee Right 3 View XRAY; Complete Time: 11:01 ma2 04/29 09:55 Order name: Foot Right 3 View XRAY; Complete Time: 11:01 ma2 04/29 11:07 Order name: Ankle Splint: Orthoglass: Posterior: posterior and stirrup; Complete Time: ma2 11:26 04/29 11:08 Order name: Crutches; Complete Time: 11:26 ak2 Administered Medications: 10:17 Drug: traMADol 50 mg Route: PO; hj 10:59 Follow up: Response: No adverse reaction; Pain is decreased hj Disposition: 04/29/19 11:15 Discharged to Home. Impression: Nondisplaced fracture of medial malleolus of right tibia, Fracture of shaft of fibula. - Condition is Stable. - Discharge Instructions: Ankle Fracture. - Prescriptions for Tylenol- Codeine #3 300-30 mg Oral Tablet - take 2 tablet by ORAL route every 6 hours As needed; 30 tablet. Tramadol 50 mg Oral Tablet - take 1 tablet by ORAL route every 8 hours as needed; 12 tablet. - Medication Reconciliation Form, Thank You Letter, Antibiotic Education, Prescription Opioid Use form. - Follow up: Rigo Rodriguez MD; When: Tomorrow; Reason: Continuance of care. - Notes: no weight bearing on right leg Signatures: Dispatcher [employer] Naya Johnson, RN SIMON iw Srikanth Lai RN RN Prasad Faustin MD MD ma2 Corrections: (The following items were deleted from the chart) 12:27 11:15 04/29/2019 11:15 Discharged to Home. Impression: Nondisplaced fracture of medial hj malleolus of right tibia; Fracture of shaft of fibula. Condition is Stable. Forms are Medication Reconciliation Form, Thank You Letter, Antibiotic Education, Prescription Opioid Use. Follow up: Dr. Rigo Rodriguez; When: Tomorrow; Reason: Continuance of care. ma2
--- NOTE | 2019-04-29 11:16 | ER ---
Nurse's Notes [facility] Name: Aneesh Stock Age: 68 yrs Sex: Female : 1950 Arrival Date: 04/29/2019 Time: 09:36 Bed 26 Private MD: Juan Liriano V Diagnosis: Nondisplaced fracture of medial malleolus of right tibia;Fracture of shaft of fibula Presentation: 04/29 09:56 Presenting complaint: Patient states: slipped and fell at work, fell onto butt/back, iw right knee bent underneath her, now has pain to right knee, right ankle and side of foot. Transition of care: patient was not received from another setting of care. Onset of symptoms was April 29, 2019. Risk Assessment: Do you want to hurt yourself or someone else? Patient reports no desire to harm self or others. Initial Sepsis Screen: Does the patient meet any 2 criteria? No. Patient's initial sepsis screen is negative. Does the patient have a suspected source of infection? No. Patient's initial sepsis screen is negative. Care prior to arrival: None. 09:56 Method Of Arrival: Wheelchair iw 09:56 Acuity: NICHOLAS 4 iw Triage Assessment: 10:39 General: Appears in no apparent distress. uncomfortable, Behavior is calm, cooperative, hj appropriate for age. Pain:. Historical: - Allergies: 10:00 Codeine; iw 10:00 Lamisil; iw 10:00 Lidocaine; iw - Home Meds: 10:00 simvastatin 40 mg Oral tab 1 tab once daily [Active]; glimepiride 4 mg Oral tab 1 tab iw once daily [Active]; Januvia 50 mg oral tab 2 tabs once daily [Active]; fluticasone inhalation inhalation [Active]; losartan 50 mg oral tab 1 tab once daily [Active]; Calcium Carbonate Oral daily [Active]; - PMHx: 10:00 Diabetes - NIDDM; Hyperlipidemia; Hypertension; iw - PSHx: 10:00 ; Hysterectomy; Knee surgery; breast surgery; left wrist sx; iw - Immunization history:: Adult Immunizations up to date. - Social history:: Smoking status: Patient/guardian denies using tobacco, Patient/guardian denies using alcohol, street drugs, The patient lives with family. - Ebola Screening: : Patient negative for fever greater than or equal to 101.5 degrees Fahrenheit, and additional compatible Ebola Virus Disease symptoms Patient denies exposure to infectious person Patient denies travel to an Ebola-affected area in the 21 days before illness onset No symptoms or risks identified at this time. - Family history:: not pertinent. - Hospitalizations: : No recent hospitalization is reported. Screenin:00 Abuse screen: Denies threats or abuse. Denies injuries from another. Nutritional hj screening: No deficits noted. Tuberculosis screening: No symptoms or risk factors identified. Fall Risk Fall in past 12 months (25 points). Assessment: 10:00 General: Appears in no apparent distress. uncomfortable, Behavior is calm, cooperative, hj appropriate for age. Pain: Complains of pain in right leg. Neuro: Level of Consciousness is awake, alert, obeys commands, Oriented to person, place, time, situation, Appropriate for age. Cardiovascular: Capillary refill < 3 seconds Patient's skin is warm and dry. Respiratory: Airway is patent Respiratory effort is even, unlabored, Respiratory pattern is regular, symmetrical. GI: No signs and/or symptoms were reported involving the gastrointestinal system. : No signs and/or symptoms were reported regarding the genitourinary system. EENT: No signs and/or symptoms were reported regarding the EENT system. Derm: No signs and/or symptoms reported regarding the dermatologic system. Musculoskeletal: Reports pain in right leg. 11:37 Reassessment: Patient and/or family updated on plan of care and expected duration. Pain hj level reassessed. Patient is alert, oriented x 3, equal unlabored respirations, skin warm/dry/pink. Patient states feeling better. Patient states symptoms have improved. 12:12 Reassessment: awaiting for copy of CD from XRAY;. hj Vital Signs: 10:02 BP 128 / 70; Pulse 60; Resp 16; Temp 98.2; Pulse Ox 100% on R/A; Weight 64.41 kg; iw Height 5 ft. 0 in. (152.40 cm); Pain 10/10; 11:45 BP 159 / 69; Pulse 59; Resp 18; Pulse Ox 96% on R/A; hj 10:02 Body Mass Index 27.73 (64.41 kg, 152.40 cm) iw ED Course: 09:36 Patient arrived in ED. mr 09:36 Juan Liriano MD is Private Physician. mr 09:48 Srikanth Lai, RN is Primary Nurse. hj 09:49 Prasad Elias MD is Attending Physician. ma2 09:58 Triage completed. iw 10:01 Arm band placed on. iw 10:39 Ankle Right 3 View XRAY In Process Unspecified. EDMS 10:39 Knee Right 3 View XRAY In Process Unspecified. EDMS 10:39 Foot Right 3 View XRAY In Process Unspecified. EDMS 10:40 Patient has correct armband on for positive identification. Placed in gown. Bed in low hj position. Call light in reach. Side rails up X 1. Adult w/ patient. 11:14 Rigo Rodriguez MD is Referral Physician. ma2 Administered Medications: 10:17 Drug: traMADol 50 mg Route: PO; hj 10:59 Follow up: Response: No adverse reaction; Pain is decreased Outcome: 11:15 Discharge ordered by . ma2 12:27 Patient left the ED. Signatures: Dispatcher [employer] [facility] [employer] Naya Meneses, RN RN Srikanth Lai, RN RN Prasad Elias MD MD maCarolynn
== END 2019-04-29 12:27 | disposition home or self-care (01) ==
LOC: ER 09:32
PROC: 2W3QX1Z Immobilization of Right Lower Leg using Splint (ICD-10-PCS; principal; 2019-04-29)
DX: S82.54XA Nondisplaced fracture of medial malleolus of right tibia, initial encounter for closed fracture (principal); S82.401A Unspecified fracture of shaft of right fibula, initial encounter for closed fracture; W19.XXXA Unspecified fall, initial encounter; E11.9 Type 2 diabetes mellitus without complications; E78.5 Hyperlipidemia, unspecified; I10 Essential (primary) hypertension; Z88.5 Allergy status to narcotic agent
CPT/HCPCS: 99283

== ENCOUNTER 2019-05-03 11:04 | Emergency (ER) | payer OTHER, SELFPAY ==
--- NOTE | 2019-05-03 13:18 | ER ---
Nurse's Notes [facility] Name: Aneesh Stock Age: 68 yrs Sex: Female : 1950 Arrival Date: 05/03/2019 Time: 11:07 Bed 18 Private MD: Diagnosis: Nondisplaced fracture of lateral malleolus of unspecified fibula Presentation: 05/03 11:27 Presenting complaint: Child states: Seen here on Tuesday for work related fall, dx w/ ph fracture and splint placed to R leg, states, " We were told to follow up w/ ortho but I'm having trouble w/ workman's comp giving us a doctor to go to." Pt reports that pain was well controlled until yesterday, prescribed tramadol for pain, took at approx 0800 this morning. Transition of care: patient was not received from another setting of care. Onset of symptoms was May 03, 2019. Risk Assessment: Do you want to hurt yourself or someone else? Patient reports no desire to harm self or others. Initial Sepsis Screen: Does the patient meet any 2 criteria? No. Patient's initial sepsis screen is negative. Does the patient have a suspected source of infection? No. Patient's initial sepsis screen is negative. Care prior to arrival: None. 11:27 Method Of Arrival: Wheelchair ph 11:27 Acuity: NICHOLAS 4 ph Historical: - Allergies: 11:31 Codeine; ph 11:31 Lamisil; ph 11:31 Lidocaine; ph - Home Meds: 11:31 Calcium Carbonate Oral daily [Active]; fluticasone inhalation [Active]; glimepiride 4 ph mg Oral tab 1 tab once daily [Active]; Januvia 50 mg Oral tab 2 tabs once daily [Active]; losartan 50 mg Oral tab 1 tab once daily [Active]; simvastatin 40 mg Oral tab 1 tab once daily [Active]; - PMHx: 11:31 Diabetes - NIDDM; Hyperlipidemia; Hypertension; ph - PSHx: 11:31 ; Hysterectomy; Knee surgery; breast surgery; left wrist sx; ph - Immunization history:: Adult Immunizations unknown. - Social history:: Smoking status: Patient/guardian denies using tobacco. - Ebola Screening: : No symptoms or risks identified at this time. Screenin:03 Abuse screen: Denies threats or abuse. Nutritional screening: No deficits noted. ae4 Tuberculosis screening: No symptoms or risk factors identified. Fall Risk None identified. Assessment: 11:30 General: Appears in no apparent distress. uncomfortable, Behavior is calm, cooperative. ae4 Pain: Complains of pain in right ankle, lateral aspect of right foot, right Achilles and right heel Pain currently is 7 out of 10 on a pain scale. Neuro: Level of Consciousness is awake, alert, obeys commands, Oriented to person, place, time, situation, Appropriate for age. Cardiovascular: Patient's skin is warm and dry. Respiratory: Airway is patent Respiratory effort is even, unlabored, Respiratory pattern is regular, symmetrical. GI: No signs and/or symptoms were reported involving the gastrointestinal system. : No signs and/or symptoms were reported regarding the genitourinary system. EENT: No signs and/or symptoms were reported regarding the EENT system. Derm: No signs and/or symptoms reported regarding the dermatologic system. Skin is pink, warm \\T\\ dry. Musculoskeletal: Swelling present in right ankle and lateral aspect of right foot. Vital Signs: 11:30 BP 119 / 68; Pulse 90; Resp 18; Temp 97.9; Pulse Ox 94% on R/A; Weight 64.41 kg; Height ph 5 ft. 0 in. (152.40 cm); Pain 8/10; 12:40 BP 121 / 70; Pulse 67; Resp 18; Pulse Ox 95% on R/A; ae4 11:30 Body Mass Index 27.73 (64.41 kg, 152.40 cm) ph ED Course: 11:07 Patient arrived in ED. as 11:28 Kayla Snider FNP-C is PHCP. snw 11:28 Ady Barber MD is Attending Physician. snw 11:30 Triage completed. ph 11:31 Arm band placed on Patient placed in an exam room, on a stretcher. ph 11:34 Alejandro Dominguez, SIMON is Primary Nurse. ae4 13:02 WALKING BOOT. mh5 13:04 Patient has correct armband on for positive identification. Bed in low position. Call mh5 light in reach. Side rails up X 1. Adult w/ patient. Pulse ox on. NIBP on. 14:03 No provider procedures requiring assistance completed. Patient did not have IV access ae4 during this emergency room visit. Administered Medications: No medications were administered Outcome: 13:17 Discharge ordered by . shilpa 14:03 Discharged to home via wheelchair, with family. ae4 14:03 Condition: stable 14:03 Discharge instructions given to patient, family, Instructed on discharge instructions, follow up and referral plans. Demonstrated understanding of instructions. 14:04 Patient left the ED. ae4 Signatures: Kayla Snider, SAND MILL OPERATOR-C SAND MILL OPERATOR-Csnw Caitlyn Benavides Patricia, RN RN Chandni Benavides [facility] Alejandro Dominguez, SIMON RN ae4
--- NOTE | 2019-05-03 13:18 | EDPHYS ---
Physician Documentation [facility] Name: Aneesh Stock Age: 68 yrs Sex: Female : 1950 Arrival Date: 05/03/2019 Time: 11:07 Bed 18 Private MD: ED Physician Ady Barber HPI: 05/03 13:22 This 68 yrs old Female presents to ER via Wheelchair with complaints of Ankle snw Pain. 13:22 The patient presents with pain, difficulty with ADLs secondary to splint/coordination. snw Unable to immediately f/u with ortho. . The complaints affect the right ankle. Onset: The symptoms/episode began/occurred and became persistent. Context: awaiting ortho f/u. Severity of symptoms: At their worst the symptoms were mild, moderate. It is unknown whether or not the patient has had similar symptoms in the past. The patient has been recently seen at the [facility] Emergency Department, last week, for similar complaints need f/u with ortho. Historical: - Allergies: 11:31 Codeine; ph 11:31 Lamisil; ph 11:31 Lidocaine; ph - Home Meds: 11:31 Calcium Carbonate Oral daily [Active]; fluticasone inhalation [Active]; glimepiride 4 ph mg Oral tab 1 tab once daily [Active]; Januvia 50 mg Oral tab 2 tabs once daily [Active]; losartan 50 mg Oral tab 1 tab once daily [Active]; simvastatin 40 mg Oral tab 1 tab once daily [Active]; - PMHx: 11:31 Diabetes - NIDDM; Hyperlipidemia; Hypertension; ph - PSHx: 11:31 ; Hysterectomy; Knee surgery; breast surgery; left wrist sx; ph - Immunization history:: Adult Immunizations unknown. - Social history:: Smoking status: Patient/guardian denies using tobacco. - Ebola Screening: : No symptoms or risks identified at this time. ROS: 12:24 Constitutional: Negative for fever, chills, and weight loss, Eyes: Negative for injury, snw pain, redness, and discharge, ENT: Negative for injury, pain, and discharge, Neck: Negative for injury, pain, and swelling, Cardiovascular: Negative for chest pain, palpitations, and edema, Respiratory: Negative for shortness of breath, cough, wheezing, and pleuritic chest pain, Abdomen/GI: Negative for abdominal pain, nausea, vomiting, diarrhea, and constipation, Back: Negative for injury and pain, : Negative for injury, bleeding, discharge, and swelling, Skin: Negative for injury, rash, and discoloration, Neuro: Negative for headache, weakness, numbness, tingling, and seizure. 12:24 MS/extremity: Positive for injury or acute deformity, tenderness, of the left leg. Exam: 12:22 Constitutional: This is a well developed, well nourished patient who is awake, alert, snw and in no acute distress. Head/Face: Normocephalic, atraumatic. Eyes: Pupils equal round and reactive to light, extra-ocular motions intact. Lids and lashes normal. Conjunctiva and sclera are non-icteric and not injected. Cornea within normal limits. Periorbital areas with no swelling, redness, or edema. ENT: Nares patent. No nasal discharge, no septal abnormalities noted. Tympanic membranes are normal and external auditory canals are clear. Oropharynx with no redness, swelling, or masses, exudates, or evidence of obstruction, uvula midline. Mucous membranes moist. Neck: Trachea midline, no thyromegaly or masses palpated, and no cervical lymphadenopathy. Supple, full range of motion without nuchal rigidity, or vertebral point tenderness. No Meningismus. Chest/axilla: Normal chest wall appearance and motion. Nontender with no deformity. No lesions are appreciated. Cardiovascular: Regular rate and rhythm with a normal S1 and S2. No gallops, murmurs, or rubs. Normal PMI, no JVD. No pulse deficits. Respiratory: Lungs have equal breath sounds bilaterally, clear to auscultation and percussion. No rales, rhonchi or wheezes noted. No increased work of breathing, no retractions or nasal flaring. Abdomen/GI: Soft, non-tender, with normal bowel sounds. No distension or tympany. No guarding or rebound. No evidence of tenderness throughout. Back: No spinal tenderness. No costovertebral tenderness. Full range of motion. Skin: Warm, dry with normal turgor. Normal color with no rashes, no lesions, and no evidence of cellulitis. Neuro: Awake and alert, GCS 15, oriented to person, place, time, and situation. Cranial nerves II-XII grossly intact. Motor strength 5/5 in all extremities. Sensory grossly intact. Cerebellar exam normal. Normal gait. Psych: Awake, alert, with orientation to person, place and time. Behavior, mood, and affect are within normal limits. 12:22 Musculoskeletal/extremity: Extremities: grossly normal except: noted in the left corbett, anterior aspect of left ankle and dorsum of left foot: Splinted extremity, splint quite large, pt with multiple near fall problems, awaiting ortho appt through [employer] comp. will change to walking boot, Circulation is intact in all extremities. Sensation intact. Vital Signs: 11:30 BP 119 / 68; Pulse 90; Resp 18; Temp 97.9; Pulse Ox 94% on R/A; Weight 64.41 kg; Height ph 5 ft. 0 in. (152.40 cm); Pain 8/10; 12:40 BP 121 / 70; Pulse 67; Resp 18; Pulse Ox 95% on R/A; ae4 11:30 Body Mass Index 27.73 (64.41 kg, 152.40 cm) ph MDM: 11:48 Patient medically screened. snw 13:21 Data reviewed: vital signs, nurses notes. Data interpreted: Pulse oximetry: on room air snw is 95 %. Interpretation: normal. Counseling: I had a detailed discussion with the patient and/or guardian regarding: the historical points, exam findings, and any diagnostic results supporting the discharge/admit diagnosis, the need for outpatient follow up, to return to the emergency department if symptoms worsen or persist or if there are any questions or concerns that arise at home. Special discussion: Based on the history and exam findings, there is no indication for further emergent testing or inpatient evaluation. I discussed with the patient/guardian the need to see the orthopedic surgeon for further evaluation of the symptoms. 05/03 12:07 Order name: Walking boot; Complete Time: 12:40 snw Administered Medications: No medications were administered Disposition: 19:03 Co-signature as Attending Physician, Ady Barber MD I agree with the assessment and kdr plan of care. Disposition: 05/03/19 13:17 Discharged to Home. Impression: Nondisplaced fracture of lateral malleolus of unspecified fibula. - Condition is Stable. - Discharge Instructions: Undisplaced Fibular Ankle Fracture Treated With Immobilization, Adult, Walking Boot. - Prescriptions for Ultram 50 mg Oral Tablet - take 1 tablet by ORAL route every 6 hours As needed; 12 tablet. - Medication Reconciliation Form, Thank You Letter, Antibiotic Education, Prescription Opioid Use form. - Follow up: Private Physician; When: 2 - 3 days; Reason: Recheck today's complaints, Continuance of care, Re-evaluation by your physician. Signatures: Ady Barber MD MD [facility] Kayla Snider FNP-Sherri NUTRITION PARTNER-[place]ice [place], RN RN ph Alejandro Dominguez RN RN ae4 Corrections: (The following items were deleted from the chart) 14:04 13:17 05/03/2019 13:17 Discharged to Home. Impression: Nondisplaced fracture of lateral ae4 malleolus of unspecified fibula. Condition is Stable. Forms are Medication Reconciliation Form, Thank You Letter, Antibiotic Education, Prescription Opioid Use. Follow up: Private Physician; When: 2 - 3 days; Reason: Recheck today's complaints, Continuance of care, Re-evaluation by your physician. snw
== END 2019-05-03 14:04 | disposition home or self-care (01) ==
LOC: ER 11:04
DX: S82.65XA Nondisplaced fracture of lateral malleolus of left fibula, initial encounter for closed fracture (principal); I10 Essential (primary) hypertension; E78.5 Hyperlipidemia, unspecified; E11.9 Type 2 diabetes mellitus without complications; Z88.4 Allergy status to anesthetic agent; Z88.5 Allergy status to narcotic agent; Z88.8 Allergy status to other drugs, medicaments and biological substances
CPT/HCPCS: 99283